=== PATIENT | female | born 1930 | race Caucasian/White ===

== ENCOUNTER → 2016-11-24 | Outpatient (CLI) | payer OTHER, MEDICARE ==
[~2016-11-24] MED LIST: ASPIR 8181 MG PO; FISH OIL 1,001000 M2 PO; IRBESARTAN-HCT1 EACH PO; KEFLEX250 M1 PO; LEVOTHYROXINE100 MCG PO; MAGNESIUM OXID200 MG PO; MAGNESIUM OXID400 MG; MELATONIN3 M1 PO; ZOCOR20 MG PO
== END ==
LOC: RAD 09:27
DX: Z12.31 Encounter for screening mammogram for malignant neoplasm of breast (principal)

== ENCOUNTER → 2017-12-08 | Outpatient (CLI) | payer OTHER, MEDICARE | LOC: RAD 08:56 | DX: Z12.31 Encounter for screening mammogram for malignant neoplasm of breast (principal) ==